=== PATIENT | male | born 1945 ===

== ENCOUNTER 2020-07-02 14:45 | Inpatient (IN) ==
[2020-07-02] MEDS ORDERED: Ondansetron 4 MG/2 ML VIAL IVP PRN (14:57)
[2020-07-02] MEDS ORDERED: Naloxone 0.4 MG/ML INJ IVP PRN (14:57)
[2020-07-02] MEDS: *HR* Heparin 5,000 UNIT/ML VIAL SQ SCH (17:41)
[2020-07-02] MEDS: levoFLOXacin 750 MG TABLET PO SCH (17:42)
[2020-07-03] MEDS: *HR* Heparin 5,000 UNIT/ML VIAL SQ SCH ×2 (08:54→16:59)
[2020-07-03] MEDS: Furosemide Oral Soln 40 MG/4 ML UDC PO SCH (08:55)
[2020-07-03] MEDS: Aspirin 81 MG TAB.CHEW PO SCH (08:55)
[2020-07-03] MEDS: levoFLOXacin 750 MG TABLET PO SCH (08:55)
[2020-07-03 10:10] LABS: Basophils % 0.3 %; Eosinophils # 0.4 K/mcL (0.0-0.6); Eosinophils % 4.1 %; Hematocrit 38.8 % (37.5-50.1); Immature Granulocytes % 0.4 % (0-4); Lymphocytes # 1.2 K/mcL (0.6-4.6); Lymphocytes % 12.4 %; Mean Corpuscular HGB Conc 33.5 g/dL (31.6-35.5); Mean Corpuscular Hemoglobin 30.4 pg (28.0-33.3); Mean Corpuscular Volume 90.7 fL (83.0-100.0); Mean Platelet Volume 10.9 fL (9.4-12.4); Monocytes # 0.7 K/mcL (0.0-1.3); Monocytes % 7.5 %; Neutrophils # 7.1 K/mcL (1.6-8.9); Platelet Count 228 K/mcL (140-400); Red Blood Count 4.28 M/mcL (4.19-5.50); Segmented Neutrophils % 75.3 %; White Blood Count 9.4 K/mcL (4.3-11.1)
[2020-07-03 10:32] LABS: BUN/Creatinine Ratio 22 (6-26); Blood Urea Nitrogen 15 mg/dL (8-23); Calcium 8.7 mg/dL (8.6-10.3); Carbon Dioxide 30 mEq/L (23-29); Chloride 106 mEq/L (98-107); Glucose 97 mg/dL (70-105); Osmolality,Calculated 295 (280-300); Potassium 3.7 mEq/L (3.5-5.1); Sodium 142 mEq/L (136-145); eGFR For African Americans > 60 (> 60); eGFR For Non-African Americans > 60 (> 60)
[2020-07-04] MEDS: *HR* Heparin 5,000 UNIT/ML VIAL SQ SCH ×2 (05:50→16:39)
[2020-07-04 06:17] LABS: BUN/Creatinine Ratio 18 (6-26); Blood Urea Nitrogen 15 mg/dL (8-23); Calcium 8.5 mg/dL (8.6-10.3); Carbon Dioxide 33 mEq/L (23-29); Chloride 105 mEq/L (98-107); Glucose 107 mg/dL (70-105); Magnesium 2.1 mg/dL (1.6-2.6); Osmolality,Calculated 295 (280-300); Potassium 3.8 mEq/L (3.5-5.1); Sodium 142 mEq/L (136-145); eGFR For African Americans > 60 (> 60); eGFR For Non-African Americans > 60 (> 60)
[2020-07-04] MEDS: Aspirin 81 MG TAB.CHEW PO SCH (09:57)
[2020-07-04] MEDS: Furosemide Oral Soln 40 MG/4 ML UDC PO SCH (09:57)
[2020-07-05] MEDS: *HR* Heparin 5,000 UNIT/ML VIAL SQ SCH ×2 (06:00→18:15)
[2020-07-05] MEDS: Aspirin 81 MG TAB.CHEW PO SCH (09:43)
[2020-07-05] MEDS: Furosemide Oral Soln 40 MG/4 ML UDC PO SCH (09:43)
[2020-07-05] MEDS: Acetaminophen 325 MG TABLET PO PRN (18:54)
[2020-07-06] MEDS: *HR* Heparin 5,000 UNIT/ML VIAL SQ SCH ×2 (05:50→17:01)
[2020-07-06] MEDS: Aspirin 81 MG TAB.CHEW PO SCH (08:57)
[2020-07-06] MEDS: Furosemide Oral Soln 40 MG/4 ML UDC PO SCH (08:57)
[2020-07-06] MEDS: Acetaminophen 325 MG TABLET PO PRN (21:21)
[2020-07-07] MEDS: *HR* Heparin 5,000 UNIT/ML VIAL SQ SCH ×2 (05:44→20:29)
[2020-07-07] MEDS: Acetaminophen 325 MG TABLET PO PRN (09:20)
[2020-07-07] MEDS: Furosemide Oral Soln 40 MG/4 ML UDC PO SCH (09:21)
[2020-07-07] MEDS: Aspirin 81 MG TAB.CHEW PO SCH (09:21)
[2020-07-08] MEDS: *HR* Heparin 5,000 UNIT/ML VIAL SQ SCH ×2 (05:43→16:41)
[2020-07-08] MEDS: Aspirin 81 MG TAB.CHEW PO SCH (08:32)
[2020-07-08] MEDS: Furosemide Oral Soln 40 MG/4 ML UDC PO SCH (08:32)
[2020-07-08] MEDS: Ibuprofen 600 MG TABLET PO PRN ×2 (09:35→20:29)
[2020-07-09] MEDS: *HR* Heparin 5,000 UNIT/ML VIAL SQ SCH (05:22)
[2020-07-09] MEDS: Aspirin 81 MG TAB.CHEW PO SCH (08:21)
[2020-07-09] MEDS: Furosemide Oral Soln 40 MG/4 ML UDC PO SCH (08:24)
[2020-07-09] MEDS: Ibuprofen 600 MG TABLET PO PRN (19:48)
[2020-07-10] MEDS: Furosemide Oral Soln 40 MG/4 ML UDC PO SCH ×2 (08:00→08:08)
[2020-07-10] MEDS: Aspirin 81 MG TAB.CHEW PO SCH (08:01)
[2020-07-10] MEDS: Ibuprofen 600 MG TABLET PO PRN (20:49)
[2020-07-11 07:58] VITALS: BP 139/78
[2020-07-11] MEDS: Aspirin 81 MG TAB.CHEW PO SCH (09:23)
[2020-07-11] MEDS: Furosemide Oral Soln 40 MG/4 ML UDC PO SCH (09:24)
== END 2020-07-11 13:45 | disposition home health service (06) | DRG 945 ==
LOC: INPPIK 16:20
PROVIDERS: ADMIT Family Medicine; ATTEND Family Medicine